=== PATIENT | female | born 1960 | race Caucasian/White ===

== ENCOUNTER 2022-09-08 13:15 | Emergency (ER) | payer OTHER ==
[~2022-09-08] VITALS: Ht 165.1 cm; Wt 75.0 kg
[~2022-09-08 13:15] MED LIST: ASPI-1497; FERR325T6; GEMF600T PO; HUM10VIA8; LOSA100T32; NORT10CA; SITA1TAB8
[2022-09-08 13:23] VITALS: BP 186/81
[2022-09-08] MEDS ORDERED: ACETAMINOPHEN 325MG TABLET PO ONE (16:30)
[2022-09-08] MEDS ORDERED: TETANUS, DIPHTHERIA, PERTUSSIS VAC/PF 0.5ML (>10YR OLD) IM ONE (17:00)
== END 2022-09-08 18:31 | disposition home or self-care (01) ==
LOC: ER 13:15
DX: M25.561 Pain in right knee (principal); M25.532 Pain in left wrist; M79.661 Pain in right lower leg; G89.11 Acute pain due to trauma; Z91.81 History of falling; M77.51 Other enthesopathy of right foot and ankle; M77.31 Calcaneal spur, right foot; I10 Essential (primary) hypertension; E11.9 Type 2 diabetes mellitus without complications; Z85.9 Personal history of malignant neoplasm, unspecified
CPT/HCPCS: 73110; 73562; 73590; 73630; 90471; 90715; 99284; Z7610